=== PATIENT | female | born 1975 | race Hispanic/Latino ===

== ENCOUNTER 2017-07-01 15:21 | Emergency (ER) | payer OTHER ==
[2017-07-01 15:49] VITALS: TEMP 98.5; BMI 51.6
[2017-07-01] MEDS ORDERED: Sodium Chloride 0.9% 500 ML IV STA (16:10)
--- NOTE | 2017-07-01 16:15 | ED PDOC ---
Arrival/HPI - General Historian: Patient - History of Present Illness Time/Duration: Other (4 days) Symptom Onset: Gradual Symptom Course: Intermittent Quality: Aching, Stabbing, Other (spasms) - General Chief Complaint: Back Pain Time Seen by Provider: 07/01/17 15:26 - History of Present Illness Narrative History of Present Illness (Text): 07/01/17 16:14 41yr old female sent in by dr. lyons for evaluation of left sided back pain. pt denies any recent trauma or injury. pt states she has sharp pains to the left low back. pt denies fever/chills. denies urinary symptoms. no cp or sob. eating and drinking well. pt states she has a vague abdominal pain on the left side that started last night. denies n/v/d/c. Took motrin for pain without improvement. denies radiation of pain into the lower legs. (Marcia Bazzi) Past Medical History - Provider Review Nursing Documentation Reviewed: Yes - Travel History Have you recently traveled outside [place] w/in the past 3 mons?: No - Infectious Disease Hx of Infectious Diseases: None - Tetanus Immunization Tetanus Immunization: Unknown - Cardiac Hx Hypertension: Yes - Gastrointestinal Hx Gastroesophageal Reflux: Yes - Psychiatric Hx Substance Use: No - Surgical History Other/Comment: Sinus sx - Anesthesia Hx Anesthesia: Yes Hx Anesthesia Reactions: No Hx Malignant Hyperthermia: No Family/Social History - Physician Review Nursing Documentation Reviewed: Yes Family/Social History: Unknown Family HX Smoking Status: Never Smoked Hx Alcohol Use: No Hx Substance Use: No Allergies/Home Meds Allergies/Adverse Reactions: Allergies codeine Allergy (Verified 07/01/17 15:34) VOMITING Home Medications: Home Meds Medication Instructions Recorded Confirmed Hydrochlorothiazide [Microzide] 1 tab PO DAILY 07/01/17 07/01/17 Lansoprazole [Prevacid 24Hr] 30 mg PO DAILY 07/01/17 07/01/17 Nebivolol [Bystolic] 1 tab PO DAILY 07/01/17 07/01/17 Review of Systems - Review of Systems Constitutional: absent: Fatigue, Fevers Respiratory: absent: SOB, Cough Cardiovascular: absent: Chest Pain, Palpitations Gastrointestinal: Abdominal Pain. absent: Constipation, Diarrhea, Nausea, Vomiting Genitourinary Female: absent: Dysuria, Frequency, Hematuria, Vaginal Bleeding, Vaginal Discharge Musculoskeletal: Back Pain. absent: Arthralgias, Neck Pain Skin: absent: Rash, Pruritis Neurological: absent: Headache, Dizziness Psychiatric: absent: Anxiety, Depression Physical Exam Vital Signs Reviewed: Yes Temperature: Afebrile Blood Pressure: Normal Pulse: Regular Respiratory Rate: Normal Appearance: Positive for: Well-Appearing, Non-Toxic, Comfortable Pain Distress: None Mental Status: Positive for: Alert and Oriented X 3 - Systems Exam Head: Present: Atraumatic Mouth: Present: Moist Mucous Membranes Neck: Present: Normal Range of Motion Respiratory/Chest: Present: Clear to Auscultation. No: Wheezes, Retracting, Rhonchi, Tachypneic, Tender to Palpation Cardiovascular: Present: Regular Rate and Rhythm Abdomen: Present: Tenderness (minimal left sided upper abdominal pain), Normal Bowel Sounds. No: Distention, Peritoneal Signs, Rebound, Guarding Back: Present: Normal Inspection, Paraspinal Tenderness (+ minimal left flank tenderness). No: CVA Tenderness, Midline Tenderness Upper Extremity: Present: Normal Inspection. No: Cyanosis, Edema Lower Extremity: Present: Normal Inspection. No: Edema Neurological: Present: GCS=15, Speech Normal Skin: Present: Warm, Dry, Normal Color. No: Rashes Psychiatric: Present: Alert, Oriented x 3 Vital Signs Temp Pulse Resp BP Pulse Ox 07/01/17 19:22 86 18 123/79 98 07/01/17 15:39 98.5 F 93 H 18 125/84 98 Medical Decision Making ED Course and Treatment: I was available for consultation during PA evaluation. The chart was reviewed by me, and I agree with disposition. The documented history was done by the physician territory outside sales manager. The documented physical exam was done by the physician territory outside sales manager. The documented procedures were done by the physician territory outside sales manager. (Holden Bhatia) 07/01/17 16:19 Patient is nontoxic well appearing with stable vital signs presenting with 4 day history of left sided low back pain. CBC WNL CMP WNL Lipase WNL Urinalysis: WNL CAT scan: FINDINGS: There is limited evaluation of the solid organs without the administration of IV contrast. Examination limited by habitus. LOWER THORAX: No visible consolidation, pleural effusion, or pneumothorax. LIVER: Hepatomegaly. Hypoattenuation of the liver compatible with hepatic steatosis. GALLBLADDER AND BILE DUCTS: Unremarkable unenhanced appearance. PANCREAS: Unremarkable unenhanced appearance. SPLEEN: Unremarkable unenhanced appearance. ADRENALS: Unremarkable unenhanced appearance. KIDNEYS AND URETERS: No hydronephrosis or obstructing renal calculus. BLADDER: The urinary bladder appears unremarkable. REPRODUCTIVE: Uterus is present. APPENDIX: The appendix appears within normal limits of caliber. No secondary signs of acute appendicitis. BOWEL: The stomach is nondistended. Lack of oral contrast limits evaluation for bowel pathology. The bowel loops appear within normal limits of caliber without evidence of intestinal obstruction. Mild to moderate constipation. PERITONEUM: No significant free fluid. No definite free air. LYMPH NODES: No bulky lymphadenopathy identified. VASCULATURE: No aortic aneurysm. BONES: Degenerative changes of the spine. 9 mm anterolisthesis of L5 on S1. Severe intervertebral disc space narrowing at this level as well as vacuum disc phenomenon. OTHER FINDINGS: None. IMPRESSION: Hepatomegaly. Hypoattenuation of the liver compatible with hepatic steatosis. Mild to moderate constipation. 9 mm anterolisthesis of L5 on S1 with severe intervertebral disc space narrowing and vacuum disc phenomenon. Patient reassessment: PT FEELING BETTER AFTER MEDICATIONS. Discussed all results with patient in depth. advised f/u with pmd and neurosurgery and dr. padilla regarding Djd and vacuum disc phenomenon. Advised immediate return if symptoms worsen persist or if new concerning symptoms develop Patient verbalizes understanding of discharge instructions and need for immediate followup. Impression: BACK PAIN, Abdominal pain Motrin every 6 hours as needed for pain Baclofen; 1 tablet every 8 hours as needed for muscle spasms; may cause drowsiness Follow up with primary care physician within the next 2 days Follow up with the neurosurgeon and back specialist within the next 2 days. Return immediately if symptoms worsen persist or if new symptoms develop: High fevers, increasing pain, vomiting, diarrhea or any other concerning symptoms develop (Marcia Bazzi) - Lab Interpretations Lab Results: 07/01/17 16:20 07/01/17 16:20 Lab Results 07/01/17 16:20: WBC 7.4, RBC 4.78, Hgb 13.6, Hct 40.7, MCV 85.1, MCH 28.5, MCHC 33.4, RDW 14.9 H, Plt Count 276, MPV 9.6, Gran % 63.1, Lymph % (Auto) 29.3, [place] % (Auto) 6.0, Eos % (Auto) 1.3 L, Baso % (Auto) 0.3, Gran # 4.69, Lymph # 2.2, [place] # 0.5, Eos # 0.1, Baso # 0.02 07/01/17 16:20: Sodium 139, Potassium 3.8, Chloride 101, Carbon Dioxide 29, Anion Gap 13, BUN 11, Creatinine 0.8, Est GFR ( Amer) > 60, Est GFR (Non- Af Amer) > 60, Random Glucose 119 H, Calcium 9.7, Total Bilirubin 0.8, AST 31, ALT 35, Alkaline Phosphatase 78, Total Protein 7.4, Albumin 4.1, Globulin 3.3, Albumin/Globulin Ratio 1.2, Lipase 39 07/01/17 16:05: Urine Color Yellow, Urine Appearance Clear, Urine pH 6.0, Ur Specific [place] 1.015, Urine Protein Negative, Urine Glucose (UA) Negative, Urine Ketones Negative, Urine Blood Negative, Urine Nitrate Negative, Urine Bilirubin Negative, Urine Urobilinogen 0.2, Ur Leukocyte Esterase Negative - RAD Interpretation Radiology Orders: 07/01/17 16:17 ABD & PELVIS W/O PO OR IV CONT [CT] Stat - Medication Orders Current Medication Orders: Discontinued Medications Sodium Chloride (Sodium Chloride 0.9%) 500 mls @ 999 mls/hr IV .Q31M STA Stop: 07/01/17 16:40 Last Admin: 07/01/17 16:30 Dose: 999 mls/hr eMAR Start Stop Document 07/01/17 16:30 SF (Rec: 07/01/17 16:31 [facility] [id number] Intravenous Solution Start Date 07/01/17 Start Time 16:30 End Date 07/01/17 End time 17:00 Total Infusion Time 30 Ketorolac Tromethamine (Toradol) 30 mg IVP STAT STA Stop: 07/01/17 16:11 Last Admin: 07/01/17 16:30 Dose: 30 mg MAR Pain Assessment Document 07/01/17 16:30 SF (Rec: 07/01/17 16:30 [id number] Pain Reassessment Is this a pain reassessment? Yes Sleep Is patient sleeping during reassessment? No Presence of Pain Presence of Pain Yes IVP Administration Document 07/01/17 16:30 SF (Rec: 07/01/17 16:30 [email or web address]) Charges for Administration # of IVP Administrations 1 Disposition/Present on Arrival - Present on Arrival Any Indicators Present on Arrival: No History of DVT/PE: No History of Uncontrolled Diabetes: No Urinary Catheter: No History of Decub. Ulcer: No History Surgical Site Infection Following: None - Disposition Have Diagnosis and Disposition been Completed?: Yes Disposition Time: 19:00 Patient Plan: Discharge - Disposition Diagnosis: Back pain, DJD (degenerative joint disease), Abdominal pain Disposition: HOME/ ROUTINE Condition: GOOD Discharge Instructions (ExitCare): Back Pain (ED), Abdominal Pain (ED) Additional Instructions: Motrin every 6 hours as needed for pain Baclofen; 1 tablet every 8 hours as needed for muscle spasms; may cause drowsiness Follow up with primary care physician within the next 2 days Follow up with the neurosurgeon and back specialist within the next 2 days. Return immediately if symptoms worsen persist or if new symptoms develop: High fevers, increasing pain, vomiting, diarrhea or any other concerning symptoms develop Prescriptions: Baclofen [Lioresal] 10 mg PO Q8H PRN #10 tab PRN Reason: muscle spasms Ibuprofen [Motrin] 600 mg PO Q6H PRN #20 tab PRN Reason: pain/fever reduction Referrals: Arnie Lyons MD [Primary Care Provider] - Follow up with primary Jus Padilla MD [Staff Provider] - Follow up with primary Kirby Davies MD [Staff Provider] - Follow up with primary Forms: [email or web address] ([place]), WORK NOTE
[2017-07-01 16:16] LABS: URINE BILIRUBIN NEGATIVE (NEGATIVE); URINE BLOOD NEGATIVE (NEGATIVE); URINE GLUCOSE (UA) NEGATIVE (NEGATIVE); URINE KETONE NEGATIVE (NEGATIVE); URINE LEUKOCYTE ESTERASE NEGATIVE Leu/uL (NEGATIVE); URINE PROTEIN NEGATIVE mg/dL (<30 mg/dL); URINE UROBILINOGEN 0.2 E.U./dL (<1 E.U./dL)
[2017-07-01 16:17] LABS: URINE APPEARANCE CLEAR (CLEAR); URINE COLOR YELLOW (YELLOW)
[2017-07-01 16:42] LABS: ALB/GLOB RATIO 1.2 (1.1-1.8); ALKALINE PHOSPHATASE 78 U/L (38-126); ALT/SGPT 35 U/L (7-56); AST/SGOT 31 U/L (14-36); BILIRUBIN,TOTAL 0.8 mg/dL (0.2-1.3); BLOOD UREA NITROGEN 11 mg/dL (7-21); CALCIUM 9.7 mg/dL (8.4-10.5); CARBON DIOXIDE 29 mmol/L (21-33); CHLORIDE 101 mmol/L (98-107); GFR AFRICAN-AMERICAN > 60; GLUCOSE,RANDOM 119 mg/dL (70-110); LIPASE 39 U/L (23-300); POTASSIUM 3.8 mmol/L (3.6-5.0); SODIUM 139 mmol/L (132-148); TOTAL PROTEIN 7.4 g/dL (5.8-8.3)
[2017-07-01 16:45] LABS: BASO # 0.02 K/mm3 (0.0-2.0); BASO % 0.3 % (0.0-3.0); EOS # 0.1 (0.0-0.7); EOS % 1.3 % (1.5-5.0); GRAN # 4.69 (1.4-6.5); GRAN % 63.1 % (50.0-68.0); HEMATOCRIT 40.7 % (36.0-48.0); LYMPH # 2.2 (1.2-3.4); LYMPH % 29.3 % (22.0-35.0); MEAN CELL VOLUME 85.1 fl (80.0-105.0); MEAN CORPUSCULAR HEMOGLOBIN 28.5 pg (25.0-35.0); MEAN CORPUSCULAR HGB CONC 33.4 g/dl (31.0-37.0); MEAN PLATELET VOLUME 9.6 fl (7.0-11.0); MONO # 0.5 (0.1-0.6); RED CELL DISTRIBUTION WIDTH 14.9 % (11.5-14.5); WHITE BLOOD COUNT 7.4 10^3/ul (4.5-11.0)
--- NOTE | 2017-07-01 18:19 | CT ---
PROCEDURE: CT Abdomen and Pelvis without Oral or IV contrast. HISTORY: left flank pain, minimal left sided upper abd pain COMPARISON: None available. TECHNIQUE: Contiguous axial images of the abdomen and pelvis. No oral or IV contrast administered. Coronal and Sagittal reformats generated. Radiation dose: Total exam DLP = 1348.71 mGy-cm. This CT exam was performed using one or more of the following dose reduction techniques: Automated exposure control, adjustment of the mA and/or kV according to patient size, and/or use of iterative reconstruction technique. FINDINGS: There is limited evaluation of the solid organs without the administration of IV contrast. Examination limited by habitus. LOWER THORAX: No visible consolidation, pleural effusion, or pneumothorax. LIVER: Hepatomegaly. Hypoattenuation of the liver compatible with hepatic steatosis. GALLBLADDER AND BILE DUCTS: Unremarkable unenhanced appearance. PANCREAS: Unremarkable unenhanced appearance. SPLEEN: Unremarkable unenhanced appearance. ADRENALS: Unremarkable unenhanced appearance. KIDNEYS AND URETERS: No hydronephrosis or obstructing renal calculus. BLADDER: The urinary bladder appears unremarkable. REPRODUCTIVE: Uterus is present. APPENDIX: The appendix appears within normal limits of caliber. No secondary signs of acute appendicitis. BOWEL: The stomach is nondistended. Lack of oral contrast limits evaluation for bowel pathology. The bowel loops appear within normal limits of caliber without evidence of intestinal obstruction. Mild to moderate constipation. PERITONEUM: No significant free fluid. No definite free air. LYMPH NODES: No bulky lymphadenopathy identified. VASCULATURE: No aortic aneurysm. BONES: Degenerative changes of the spine. 9 mm anterolisthesis of L5 on S1. Severe intervertebral disc space narrowing at this level as well as vacuum disc phenomenon. OTHER FINDINGS: None. IMPRESSION: Hepatomegaly. Hypoattenuation of the liver compatible with hepatic steatosis. Mild to moderate constipation. 9 mm anterolisthesis of L5 on S1 with severe intervertebral disc space narrowing and vacuum disc phenomenon.
[2017-07-01 19:48] VITALS: BP 125/80; PULSE 79; RESP 17; O2SAT 99
== END 2017-07-01 19:51 | disposition home or self-care (01) ==
LOC: ED 15:21
DX: M47.897 Other spondylosis, lumbosacral region (principal); M54.9 Dorsalgia, unspecified; R10.9 Unspecified abdominal pain; I10 Essential (primary) hypertension; K21.9 Gastro-esophageal reflux disease without esophagitis
CPT/HCPCS: 74176; 80053; 81003; 83690; 85025; 96374; 99285; J1885; J7040

== ENCOUNTER 2019-01-26 09:31 | Outpatient (CLI) | payer OTHER | END 2019-01-26 09:32 | disposition home or self-care (01) | LOC: RAD 09:31 ==